=== PATIENT | female | born 1950 | race Caucasian/White ===

== ENCOUNTER → 2018-02-22 08:59 | Outpatient (CLI) | payer MEDICARE, BC, SELFPAY ==
[2018-02-22 10:36] LABS: Alanine Aminotransferase 18 U/L (12-78); Albumin Level 3.3 gm/dL (3.4-5.0); Albumin/Globulin Ratio 0.9 (1.1-1.8); Alkaline Phosphatase 122 U/L (46-116); Anion Gap 10.4 mEq/L (5-15); Aspartate Amino Transferase 18 U/L (15-37); Bilirubin,Total 0.4 mg/dL (0.2-1.0); Blood Urea Nitrogen 21 mg/dL (7-18); Carbon Dioxide 32 mmol/L (21.0-32.0); Chloride 105 mmol/L (98-107); Chol/HDL Ratio 3.2 (1-3.5); Cholesterol 185 mg/dL (140-200); Creatinine,Serum 0.92 mg/dL (0.55-1.02); Estimated Glomerular Filt Rate 61 ml/min (>60); GFR (African American) 74 ML/MIN (>60); Globulin 3.8 gm/dl (1.3-3.2); Glucose 125 mg/dL (74-106); HDL Cholesterol 57 mg/dL (29-89); LDL Cholesterol 110 mg/dL (0-130); Potassium 4.4 mmoL/L (3.5-5.1); Sodium 143 mmol/L (136-145); Total Protein,Serum 7.1 gm/dL (6.4-8.2); Triglycerides 90 mg/dL (30-200); VLDL Cholesterol 18 mg/dL (0-40)
== END ==
PROVIDERS: PCP Family Medicine; Visit Provider Family Medicine
DX: E11.9 Type 2 diabetes mellitus without complications (principal); I10 Essential (primary) hypertension
CPT/HCPCS: 36415; 80053; 80061; 83036

== ENCOUNTER → 2018-02-28 13:01 | Outpatient (CLI) | payer MEDICARE, BC, SELFPAY ==
--- NOTE | 2018-02-28 13:04 | CT_ITS ---
CT lung screening EXAM: CT LUNG LOW DOSE WO CONTRAST HISTORY: 52 pack year smoking history, asymptomatic for lung cancer ITS.REASON: CURRENT TOBACCO USE ORDERING PHYSICIAN: Hiram Zavala MD PATIENT AGE: 67 years COMPARISON: None TECHNIQUE: The exam was performed on a GE Light Speed [address] scanner using 2.90 mGy CTDI. A low dose helical CT CHEST was performed on a multi-detector scanner. All CT scans at the facility use one or more dose reduction, viz: automated exposure control, ma/kV adjustment per patient size (including targeted exams where dose is matched to indication, i.e. head), or iterative reconstruction technique. The LDCT was performed in a facility that meets the criteria for the screening program. Data regarding this exam was submitted to ACR which is an approved registry. The order for this exam indicates that it came as a result of a lung cancer screening counseling shard decision-making visit that included all the elements required of such a visit including smoking cessation. The radiologist interpreting this exam meets the CMS criteria for the LDCT lung cancer screening program. The exam is reported using the Lung-RADS classification scale and reported to the ACR registry. NOTE: This study was performed for the specific purposes of lung cancer screening and is not an alternative to diagnostic chest CT. RADIATION DOSE: CTDI vol(CT dose Index-volume) = 2.90mG DLP (Dose Length Product) = 102.53 mGcm FINDINGS: There are centrilobular and panlobular emphysematous changes with mild bronchial thickening with hyperinflation. No suspicious pulmonary nodules evident. Incidental note made of fairly extensive coronary artery calcification. There is a 1.2 cm partially calcified right thyroid nodule. A few small lymph nodes are present in the mediastinum. Calcified granuloma is present in the right lung base. IMPRESSION: 1. Lung RADS Category: 2, benign 2. Other findings: Centrilobular and panlobular emphysema. Coronary artery disease RECOMMENDATIONS: 12 month LDCT follow-up
== END ==
PROVIDERS: PCP Family Medicine; Visit Provider Family Medicine
DX: Z12.2 Encounter for screening for malignant neoplasm of respiratory organs (principal); Z87.891 Personal history of nicotine dependence

== ENCOUNTER → 2018-08-28 12:29 | Outpatient (CLI) | payer MEDICARE, BC, SELFPAY ==
--- NOTE | 2018-08-28 12:33 | XR_ITS ---
XR DEXA axial skeleton HISTORY: ITS.REASON: POST MENOPAUSAL SCREENING ORDERING PHYSICIAN: Hiram Zavala MD PATIENT AGE: 68 years COMPARISON: None FINDINGS: The BMD measured at the Forearm Radius 33% is 0.406 g/cm squared with a T score of -5.4. This is considered Osteoporotic according to the World Health Organization criteria. Fracture risk is High. Treatment is advised. The L1 L4 density has a T score of -1.3. Total density of the left femoral neck has a T score of -3.2. There is lumbar scoliosis convex right IMPRESSION: Osteoporosis with high fracture risk. Treatment is advised. Recommend follow-up exam July 2019
== END ==
PROVIDERS: PCP Family Medicine; Visit Provider Family Medicine
DX: Z78.0 Asymptomatic menopausal state (principal)
CPT/HCPCS: 77080

== ENCOUNTER → 2019-05-08 14:45 | Outpatient (CLI) | payer MEDICARE, SELFPAY ==
--- NOTE | 2019-05-08 14:51 | XR_ITS ---
PROCEDURE: XR CHEST 2V CLINICAL HISTORY: PNEUMONIA COMPARISON: LUNGSCREEN CT lung screening from 02/28/2018 FINDINGS: The cardiomediastinal silhouette and pulmonary vascularity are within normal limits. COPD with emphysematous change. No lobar consolidation or collapse. There is some vascular crowding overlying the mid aspect of the heart on the lateral view. Coronary artery calcifications are also noted. No acute bony abnormalities. IMPRESSION: COPD, no acute finding. Dictated by: Efren Vargas MD 05/08/2019 17:56 Electronically signed by Efren Vargas MD in [place] 05/08/2019 17:56
== END ==
PROVIDERS: PCP Family Medicine; Visit Provider Nurse Practitioner Family
DX: J18.9 Pneumonia, unspecified organism (principal)
CPT/HCPCS: 71046